=== PATIENT | female | born 1985 | race Caucasian/White ===

== ENCOUNTER 2025-02-08 10:52 | Outpatient (AMB) | payer OTHER, SELFPAY ==
--- NOTE | 2025-02-08 10:55 | A.OFFPC_ITS ---
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 Intake Note: New patient to establish care and cpe Blueprinter Required: No Allergies amoxicillin Allergy (Severe, Verified 02/08/25 11:24) Hives Penicillins Allergy (Severe, Verified 02/08/25 11:24) hives Medication List - Last Reviewed 02/08/25 by Lori Lau MA estradiol (Mayelin) 1 patch transdermal 2XW fluoxetine 60 mg PO DAILY ondansetron HCl 4 mg PO Q6-8H PRN semaglutide mg subcut Tobacco use date assessed: 02/08/25 Dental Screening Dental Screen Date: 02/08/25 Did you have a dental visit in the last 12 months?: Yes Did you have a dental problem in the last 6 months where you did not have access to dental care?: No Was dental information given to patient?: Patient has dentist HPI HPI Comments History of Present Illness Details 39 y/o F with obesity, premenstrual dysp horic disorder, generalized anxiety disorder, obsessive-compulsive disorder, history of right otomastoiditis, menopause Social: work for home; 1 child (son ) Lives w/ and son (12) Status post total abdominal hysterectomy and bilat salpingectomy 2020 Family history: Mother with panic disorder, polyp of the colon, malignant neoplasm of the uterus grade 1 age 58, sister with panic disorder, maternal grandfather with hypertension heart disease and diabetes, paternal grandfather with hypertension heart disease, maternal grandmother with heart disease, lung disease , paternal grandmother with malignant neoplasm of the lung, dad colonic polyp, maternal with chronic polyps, paternal uncle with colonic polyp, 2nd cousin with malignant neoplasm Health Maintenance: Colon 2015, repeat 2025 Mammo 10/17/24 within normal limits DEXA PAP 05/21/18 within normal limits Tdap 02/08/25 Flu 2024 Specialists: HEAD BANQUET WAITER/WAITRESS [facility] [place] [place] History of Present Illness The patient is a 39-year-old female presenting to establish care. Generalized Anxiety Disorder with Obsessive-Compulsive Features: - The patient was diagnosed with obsessi ve-compulsive disorder at age 9 and has a history of generalized anxiety disorder with obsessive-compulsive traits. - She was on Prozac from age 9 until sh e was 27, and a trial of Celexa, Paxil, sertraline, and Luvox occurred after she stopped . - She experienced 60 lbs of weight gain with Paxil and found sertraline to be ineffective over time. - She has been stable on fluoxetine 60 m g daily for the past two and a half years. - She has been obtaining her prescriptio n from a psychiatrist through a [employer] service for $200 per visit without therapy. History of Obesity: - The patient has a past medical history significant for obesity with a prior BMI of 30.2 and a peak weight of 226 pounds. - She notes that for the first time in a decade, she is no longer considered obese, although she is still overweight. - She is currently taking semaglutide fo r weight management, which she obtains through a [employer] service as her current insurance does not cover it. - The patient reports a strong family hi story of obesity, with her mother and sister also using weight loss medication. Surgical Menopause: - The patient is in surgical menopause s tatus post total abdominal hysterectomy and bilateral salpingo-oophorectomy in 2020. - Prior to surgery, she had a history of PMDD and severe menorrhagia with periods every two weeks, leading to significant anemia. - She had a failed preoperative blood tr ansfusion attempt due to an immediate adverse reaction where her blood pressure plummeted. - She is currently on a 0.0375 mg estrad iol patch, which is managed by her machine repairer, whom she sees annually. Colon cancer screening: - The patient has a strong family histor y of precancerous colonic polyps on both maternal and paternal sides. - Her first colonoscopy was in 2009 at a ge 24 due to hemorrhoids and bleeding, during which a polyp was found and removed. - A repeat colonoscopy in 2015 was clear with no polyps found. - She is currently on a 10-year follow-u p plan and is due for her next colonoscopy in 2025. Past Medical History - Past Medical History: Obesity (current BMI 30.2), premenstrual dysphoric disorder, generalized anxiety disorder with obsessive-compulsive traits (diagnosed at age 9), history of right osteochondromatosis, history of colonic polyp, history of severe anemia, history of hemorrhoids. - Past Surgical History: Total abdominal hysterectomy and bilateral salpingo- oophorectomy (2020), colonoscopy (2009, 2015). - Family History: Strong family history of colonic polyps (maternal aunt, paternal uncle, both parents). Family history of obesity. 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 Lives with her and 12-year-old son. She does not smoke or use illicit drugs. - Allergies: Adverse reaction to blood t ransfusion (hypotension). Review of Systems - Constitutional: Reports weight loss wi th semaglutide. Acknowledges being overweight but denies being obese for the first time in a decade. - Psychiatric: Reports stable mood on cu rrent medication. Denies emotional lability. - Gastrointestinal: Denies current recta l bleeding or issues with hemorrhoids. - Genitourinary: Reports history of heav y menstrual bleeding prior to hysterectomy. Denies current genitourinary symptoms. - All other systems reviewed and are neg ative. Physical Exam General: Well developed, well nourished, in no acute distress. Appears stated age. Head: Normocephalic, atraumatic. Eyes: Pupils are equal, round and reactive to light and accommodation. Conjunctivae are clear. Lungs: Clear to auscultation bilaterally. No rales, rhonchi or wheeze noted. Good air flow in all murphy. Heart: Regular rate and rhythm. No murmurs, click, rubs or gallops are noted. Musculoskeletal: Joints are nontender, without swelling, redness, or effusions. Pulses: Peripheral pulses are equal and palpable bilaterally. Extremities: No clubbing, cyanosis nor edema is noted. Psych: Mood and affect appropriate. Results - Colonoscopy (2015): Normal, with no po lyps found. - Colonoscopy (2009): Revealed one polyp . - Last Pap smear was in 2019. - Last full lab workup was within the year; results were not reviewed during this visit. Medical Decision Making The patient is a 39-year-old female here to establish primary care. Her medical history is notable for RAÚL with OCD features, history of obesity, surgical menopause, and a history of colonic polyps with a strong family history. I will take over the prescription for her fluoxetine 60 mg daily for RAÚL/OCD, as she is stable on this dose and wishes to avoid the high cost of her previous telehealth provider. Her hormone replacement therapy for surgical menopause is appropriately managed by her HEAD BANQUET WAITER/WAITRESS, and she will continue annual follow-ups. Given her personal and strong family history of colonic polyps, a referral to gastroenterology is prudent to establish care and plan for her next screening colonoscopy, which is due in 2025. We discussed the challenges of obtaining insurance coverage for her semaglutide, and she understands she may need to continue sourcing it from a [employer] service. For health maintenance, her Tdap immunization is due and was administered today. Routine wellness labs are deferred until her physical exam in the new year to align with her changing insurance coverage, and orders have been placed for that time. Plan 1. Generalized Anxiety Disorder - Continue fluoxetine 60 mg daily. - A prescription for fluoxetine has been sent to the patient's pharmacy. 2. Weight Management - The patient will continue with her cur rent semaglutide regimen obtained through a [employer] service. - Discussed the difficulties in obtainin g insurance coverage for semaglutide, even with new plans, due to strict requirements. 3. Surgical Menopause - Continue management with her gynecolog ist for hormone replacement therapy (est radiol patch). - The patient is advised to continue her annual HEAD BANQUET WAITER/WAITRESS follow-up appointments. 4. Screening For Malignant Neoplasm Of Kiki osuna - A referral to Gastroenterology has bee n placed to establish care in preparation for her next colonoscopy, due in 2025. - The referral includes her personal and strong family history of colonic polyps. 5. Preventative Care - Administered Tdap vaccine today, as it was due. - Future lab orders for a full wellness panel (including screening for anemia, kidney/liver disease, diabetes, and heart disease) have been placed. - Patient to follow up in approximately 3 months for a physical exam. - Instructed to complete labs one week p rior to the next scheduled appointment. Patient Instructions - You received a Tdap (tetanus) shot touriah godwin, which is good for 10 years. - We have sent a prescription for Fluoxe georgina to your pharmacy. Continue taking it as directed. - We have placed a referral to a GI (sto mach and intestines) specialist for a future colonoscopy. You should receive a phone call from their office to schedule an appointment. - Please schedule your next appointment, a physical exam, in about 3 months. - An order for lab work has been placed. Please go to the lab to have your blood drawn one week before your next appointment. You do not need an appointment for the labs. - Please activate your [facility] patient p ortal account using the new email link you will receive. Click the link and then 'Sign In' to create your account. Use the portal messaging feature to communicate with our office. - Continue to see your machine repairer once a year for follow-up. - RTO 3 mo for CPE with labs, sooner as needed. Consent The need for a Tdap (tetanus, diphtheria, and acellular pertussis) vaccine was discussed with the patient, as it is recommended every 10 years and her last one was in 2013. The patient verbally agreed to receive the vaccination during the visit. Patient was informed and verbally consented to the use of an ambient scribe for clinic note documentation during this visit. Total time spent caring for the patient today was 45 minutes. This includes time spent before the visit reviewing the chart, time spent during the visit, and time spent after the visit on documentation, reviewing laboratory results, diagnostic imaging, medications, performing a medically necessary evaluation, counseling on diagnoses, care coordination, ordering appropriate tests, ordering appropriate medications, review of tests performed by other providers, reporting test results with the patient, communication with other healthcare providers. 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 1. Little interest or pleasure in doing things: not at all 2. Feeling down, depressed, or hopeless: not at all 3. Trouble falling or staying asleep, or sleeping too much: not at all 4. Feeling tired or having little energy: several days 5. Poor appetite or overeating: not at all 6. Feeling bad about yourself - or that you are a failure or have let yourself or your family down: not at all 7. Trouble concentrating on things, such as reading the newspaper or watching television: not at all 8. Moving or speaking so slowly that other people could have noticed. Or the opposite - being so fidgety or restless that you have been moving around a lot more than usual: not at all 9. Thoughts that you would be better off or of hurting yourself in some way: not at all Total score: 1 Depression Screening Interpretation: Negative Depression Screening Done: Yes 36027 - PHQ-9 Billing: Yes Source: Developed by Drs. uKrt Salinas, Tasha Nicolas, Jerry Szymanski and colleagues, with an educational simoen from [employer]. Thrive Questionnaire Date Thrive assessed: 02/08/25 I am a: Patient What is your living situation today?: I have a steady place to live Within the past 12 months, did the food you bought not last and you didn't have the money to get more?: Never true Within the past 12 months, did you worry whether your food would run out before you got money to buy more?: Never true Do you have trouble paying for medicines?: No Do you have trouble getting transportation to medical appointments?: No Do you have trouble paying your heating and electricity bill?: No Do you have trouble taking care of your child, family member or friend?: No Do you have trouble with day-to-day activities such as bathing, preparing meals, shopping, managing finances, etc.?: No Are you currently unemployed and looking for a job?: No Are you interested in more education?: No Please select the resources that you would like help with: None Currently or been in a relationship where the following occur: No concerns reported THRIVE Score: 0 AUDIT C Alcohol Use Questionnaire (AUDIT-C) 1. How often do you have a drink containing alcohol?: Monthly or less 2. How many drinks containing alcohol do you have on a typical day when you are drinking?: 1 or 2 3. How often do you have six or more drinks on one occasion?: Never Total Score: 1 Score Reviewed/Action Taken: Yes RAÚL-7 AMB Questionnaire RAÚL-7 Date RAÚL - 7 assessed: 02/08/25 Feeling nervous, anxious, or on edge: 1 = Several days Not being able to stop or control worryin = Several days Worrying too much about different things: 1 = Several days Trouble relaxin = Not at all Being so restless that it is hard to sit still: 0 = Not at all Becoming easily annoyed or irritable: 1 = Several days Feeling afraid as if something awful might happen: 1 = Several days Total RAÚL-7 score (0-4 normal; 5-9 mild; 10-14 moderate; 15-21 severe): 5 Source: Developed by Drs. Kurt Salinas, Tasha Nicolas, Jerry Szymanski and colleagues, with an educational simeon from [employer]. RAÚL-7 Assessment Billing RAÚL-7 Assessment Tool: RAÚL-7 Assessment 25223 Physical exam (Primary Care) Vital Signs: Last Vital Signs Temp 97.2 F 02/08/25 11:05 Pulse 100 02/08/25 11:05 Resp 12 02/08/25 11:05 BP 110/68 02/08/25 11:05 Pulse Ox 99 02/08/25 11:05 Oxygen Delivery Method Room Air 02/08/25 11:05 BMI result Body Mass Index 30.2 BMI Assessment/Plan discussion: High BMI High, discussed plan: lifestyle Tobacco/Smoking Status: Tobacco use Status Tobacco use date assessed 02/08/25 02/08/25 11:01 Patient Tobacco Use Status Former Tobacco user 02/08/25 11:08 e-Cigarette/Vaping Use Never Used 02/08/25 11:01 PHQ-9: PHQ-9 Score PHQ-9: Total score 1 02/08/25 11:20 Depression Screening Interpretation: Negative Thrive Assessment: Date of Thrive Assessment Date Thrive assessed 02/08/25 02/08/25 10:56 Currently or been in a relationship where the following occur: No concerns reported Immunizations Boostrix Tdap 2.5 Lf unit-8 mcg-5 Lf/0.5 mL intramuscular syringe Performing Provider: GENESIS Rodriguez Performing Location: [facility] [place] [facility] Administered by: Lori Lau MA on 02/08/25 11:45 Dose Route Admin Location Dispensed Lot Number Expiration Date [facility] Nutter Up 0.5 mL IM Left Deltoid 0.5 mL [id number] 03/10/27 [id number] [employer] Total Dispensed Waste 0.5 mL 0 % VIS Given Date VIS Provided VIS Publication Date 02/08/25 Single Vaccine 20 Eligibility Eligibility Date Funding Source Not [facility] Eligible 02/08/25 Private Coding Level of Care Code New Pt Level 4 (21557) Complex EM visit Add On G2211 Diagnoses Encounter to establish care Z76.89 Obesity (BMI 30-39.9) E66.9 History of mammogram Z92.89 S/P KAYLEE-BSO (total abdominal hysterectomy and bilateral salpingo-oophorectomy) Z90.710; Z90.722; Z90.79 History of colonoscopy Z98.890 Family history of colonic polyps Z83.71 History of Papanicolaou smear of cervix Z92.89 Family history of breast cancer Z80.3 OCD (obsessive compulsive disorder) F42.9 PMDD (premenstrual dysphoric disorder) F32.81 Long-term (current) use of injectable non-insulin antidiabetic drugs Z79.85 Surgical menopause E89.40 Need for Tdap vaccination Z23 Laboratory exam ordered as part of routine general medical examination Z00.00 Additional Codes RAÚL-7 Assessment Billing - RAÚL-7 Assessment Tool: RAÚL-7 Assessment 83373 ([id number]) PHQ-9 - 76981 - PHQ-9 Billing: Yes ([id number]) Assessment & Plan Assessment & Plan (1) Encounter to establish care: Code(s): Z76.89 - Persons encountering health services in other specified circumstances (2) Obesity (BMI 30-39.9): Code(s): E66.9 - Obesity, unspecified Category: Medical (3) History of mammogram: Onset Date: ~10/2024 Code(s): Z92.89 - Personal history of other medical treatment Category: Medical (4) S/P KAYLEE-BSO (total abdominal hysterectomy and bilateral salpingo- oophorectomy): Code(s): Z90.710 - Acquired absence of both cervix and uterus; Z90.722 - Acquired absence of ovaries, bilateral; Z90.79 - Acquired absence of other genital organ(s) Category: Surgical (5) History of colonoscopy: Onset Date: ~2015 Code(s): Z98.890 - Other specified postprocedural states Category: Surgical (6) Family history of colonic polyps: Code(s): Z83.71 - Family history of colonic polyps Category: Medical (7) History of Papanicolaou smear of cervix: Onset Date: ~2018 Code(s): Z92.89 - Personal history of other medical treatment Category: Medical (8) Family history of breast cancer: Code(s): Z80.3 - Family history of malignant neoplasm of breast Category: Medical (9) OCD (obsessive compulsive disorder): Code(s): F42.9 - Obsessive-compulsive disorder, unspecified Category: Medical (10) PMDD (premenstrual dysphoric disorder): Code(s): F32.81 - Premenstrual dysphoric disorder Category: Medical (11) Long-term (current) use of injectable non-insulin antidiabetic drugs: Code(s): Z79.85 - Long-term (current) use of injectable non-insulin antidiabetic drugs Category: Medical (12) Surgical menopause: Code(s): E89.40 - Asymptomatic postprocedural ovarian failure Category: Medical (13) Need for Tdap vaccination: Onset Date: ~02/08/25 Code(s): Z23 - Encounter for immunization Category: Medical (14) Laboratory exam ordered as part of routine general medical examination: Code(s): Z00.00 - Encounter for general adult medical examination without abnormal findings Category: Medical Plan . Orders: Orders Hemoglobin A1c 3 Months Z00.00 - Encounter for general adult medical examination without abnormal findings, Z90.710 - Acquired absence of both cervix and uterus, Z90.722 - Acquired absence of ovaries, bilateral, Z90.79 - Acquired absence of other genital organ(s) Microalbumin, Random (w Creat) 3 Months Z00.00 - Encounter for general adult medical examination without abnormal findings, Z90.710 - Acquired absence of both cervix and uterus, Z90.722 - Acquired absence of ovaries, bilateral, Z90.79 - Acquired absence of other genital organ(s) Vitamin B12 and Folate 3 Months Z00.00 - Encounter for general adult medical examination without abnormal findings, Z90.710 - Acquired absence of both cervix and uterus, Z90.722 - Acquired absence of ovaries, bilateral, Z90.79 - Acquired absence of other genital organ(s) Vitamin D 25-OH Total 3 Months Z00.00 - Encounter for general adult medical examination without abnormal findings, Z90.710 - Acquired absence of both cervix and uterus, Z90.722 - Acquired absence of ovaries, bilateral, Z90.79 - Acquired absence of other genital organ(s) Comprehensive Met. Panel 3 Months Z00.00 - Encounter for general adult medical examination without abnormal findings, Z90.710 - Acquired absence of both cervix and uterus, Z90.722 - Acquired absence of ovaries, bilateral, Z90.79 - Acquired absence of other genital organ(s) Lipid Panel 3 Months Z00.00 - Encounter for general adult medical examination without abnormal findings, Z90.710 - Acquired absence of both cervix and uterus, Z90.722 - Acquired absence of ovaries, bilateral, Z90.79 - Acquired absence of other genital organ(s) TSH reflex Free T4 3 Months Z00.00 - Encounter for general adult medical examination without abnormal findings, Z90.710 - Acquired absence of both cervix and uterus, Z90.722 - Acquired absence of ovaries, bilateral, Z90.79 - Acquired absence of other genital organ(s) TDaP Immunization Today Z23 - Encounter for immunization Referrals Gastroenterology Referral Z12.11 - Encounter for screening for malignant neoplasm of colon, Z83.71 - Family history of colonic polyps, Z98.890 - Other specified postprocedural states Medications: New fluoxetine 60 mg (3 x 20 mg) PO DAILY 270 caps 2RF 90 days Patient Instructions: Patient Instructions - You received a Tdap (tetanus) shot today, which is good for 10 years. - We have sent a prescription for Fluoxetine to your pharmacy. Continue taking it as directed. - We have placed a referral to a GI (stomach and intestines) specialist for a future colonoscopy. You should receive a phone call from their office to schedule an appointment. - Please schedule your next appointment, a physical exam, in about 3 months. - An order for lab work has been placed. Please go to the lab to have your blood drawn one week before your next appointment. You do not need an appointment for the labs. - Please activate your [facility] patient portal account using the new email link you will receive. Click the link and then 'Sign In' to create your account. Use the portal messaging feature to communicate with our office. - Continue to see your machine repairer once a year for follow-up. - RTO 3 mo for CPE with labs, sooner as needed. Walk-In Care (Urgent Care): We Make it Easy Walk-in for urgent medical issues such as: ? Seasonal Allergies ? Insect Bites ? Cough ? Diarrhea ? Acute Asthma Attacks ? Back, Knee or Joint Pain ? Ear Infection ? Fever without a Rash ? Headaches ? Nausea ? [place] Eye, Rash or Skin Irritation ? Sore Throat ? Sports Physicals ? Vomiting Most insurances are accepted. Patients do not need to be part of the [facility] to seek care at the walk-in clinic. Locations [address] [place] [address] Open Thursday through Thursday 8am-5pm *Hours may vary due to staffing availability. To confirm Walk-In Care hours please call. [facility] , [place] [address] ? [phone] [facility] [place] Walk-In Care in [place] provides services to ages 18 and over. Open Thursday-Thursday: 7 a.m. to 5 p.m. and Thursday: 9 a.m. to 3 p.m.* *Hours may vary due to staffing availability. To confirm Walk-In Care hours in [place], please call [phone]. [address] [place] [address] ? [phone] [facility] [place] Walk-In Care in [place] provides services to ages 12 and over. Open Thursday-Thursday: 8 a.m. to 5 p.m. Hours may vary due to staffing availability. To confirm Walk-In Care hours in [place], please call [phone]. LABORATORY SERVICES: [facility] [place] Lab ? Primary Location [address] [place] [address] Thursday through Thursday 6:00 AM ? 5:00 PM Thursday 7:00 AM ? 11:00 AM* [phone] The [facility] [place] Lab is centrally located near the front entrance of the [facility] for easy outpatient access. Convenient parking is provided for outpatients. *Hours may vary due to staffing availability. To confirm Laboratory hours for any location, please call [phone]. Offsite Location For your convenience, we offer offsite laboratory draw stations at the following locations: [address] [place] [address] ? [facility] [address] [place] [address], [address], [place] Thursday through Thursday 7:30 AM ? 1:00 PM* [phone] *Hours may vary due to staffing availability. To confirm Laboratory hours for any location, please call [phone]. [place] [address], [place] Thursday through Thursday 6:00 AM ? 3:30 PM* Thursday 6:30 AM ? 3 PM* [phone] *Hours may vary due to staffing availability. To confirm Laboratory hours for any location, please call [phone]. [address] [facility] Thursday through Thursday 7:30 AM ? 4:00 PM* [phone] *Hours may vary due to staffing availability. To confirm Laboratory hours for any location, please call [phone]. [address] [facility] Thursday through 9:00 AM ? 4:00 PM* *Hours may vary due to staffing availability. To confirm Laboratory hours for any location, please call [phone]. Appointments are not necessary. Walk-ins are welcome. Like all the departments throughout the [facility], our Lab undergoes frequent reviews to ensure the quality and accuracy of test results, and our staff takes special pride in its status as a nationally accredited facility. Patient Portal: [facility] ONE PATIENT. ONE RECORD. BETTER CARE. [facility] has a fully integrated, cutting- edge mobile electronic health information system that has revolutionized the way we care for our patients and manage our organization. This system improves communication and coordination enabling us to provide safe, higher-quality care, and an overall positive experience for staff and patients. Our first priority, as always, is to deliver the highest quality care possible. The system is running in the background supporting that priority. This portal is for all [facility] services and practices. If you are experiencing any technical difficulties with enrolling or logging into the Patient Portal please complete the [facility] Patient Portal Technical Support Form. [facility] now offers a new secure on-line interactive tool for patients to review their health information ? ?Patient Portal. This interactive web portal will enable patients and their families to take an active role in their care by providing easy, secure access to their health information via the internet. The Patient Portal provides patients with instant access to their health inform ation, including laboratory results, medications, allergies, demographic information, visit history, and more. In addition to managing their own care, parents and health care proxies with authorized consent will appreciate the ability to access the records of those individuals for whom they provide care. Please note: if you wish to gain access (Proxy) to another patient?s portal, you will be required to come to the Medical Records Department in person at [facility]. Both the patient giving proxy access and the proxy will need to provide photo identification and complete the appropriate authorization. The Patient Portal also allows track their appointments online. The [facility] Patient Portal also saves patients time by allowing them to submit updates to their demographic and contact information prior to their visits. Portal email notifications will also alert patients to any new activity on their portal, such as test results and new appointments. In order to initially enroll in the [facility] Patient Portal, you will need to enter some required information including the following: * your [facility] Medical Record number * your personal home email address * name * date of Please note: In order to enroll in the [facility] Patient Portal, we need to have your email address on file in your electronic medical record. ?The email address needs to be specific for one person (yourself) in order for your Portal enrollment to be successful. ?You can update your email address in person with our Registration staff when you are registering for a hospital visit. ?Otherwise, you will need to come to the Health Information Management (Medical Records) Department at [facility]. ?We are open from Thursday ? Thursday from 7:30 a.m. ? 4:30 p.m. ?You will be required to present a photo id. Once you have successfully enrolled in the Patient Portal, you will receive a one-time user id and password for the Portal, sent to your email address. ?This will allow you to log into the Patient Portal within 99 hrs and reset your own logon id and password, and define personal security questions. ?Once your permanent login and password have been set, you can log into the [facility] Patient Portal at any time via the blue button above or from the Portal Logon button on any page of the [facility] website. [facility] encourage all of our patients to enroll in Patient Portal as it presents a valuable opportunity for patients and their families to actively participate in their care and stay healthy Welcome to [facility]. ?We look forward to working with you.
[2025-02-08 11:05] VITALS: BP 110/68; PULSE 100; RESP 12; TEMP 36.2; O2SAT 99; BMI 30.2
== END 2025-02-08 14:48 | disposition home or self-care (01) ==
LOC: HO.HMCFM 10:53
PROVIDERS: PCP Nurse Practitioner Family; Visit Provider Nurse Practitioner Family
DX: F32.81 Premenstrual dysphoric disorder (principal); E89.40 Asymptomatic postprocedural ovarian failure; E66.9 Obesity, unspecified; Z68.30 Body mass index [BMI] 30.0-30.9, adult; F42.9 Obsessive-compulsive disorder, unspecified; Z92.89 Personal history of other medical treatment; Z90.710 Acquired absence of both cervix and uterus; Z90.722 Acquired absence of ovaries, bilateral; Z90.79 Acquired absence of other genital organ(s); Z98.890 Other specified postprocedural states; Z83.719 Family history of colon polyps, unspecified; Z80.3 Family history of malignant neoplasm of breast; Z79.85 Long-term (current) use of injectable non-insulin antidiabetic drugs; Z23 Encounter for immunization

== ENCOUNTER → 2025-02-08 10:52 | Outpatient (BNVA) | payer OTHER, SELFPAY | PROVIDERS: PCP Nurse Practitioner Family; Visit Provider Nurse Practitioner Family | DX: Z00.00 Encounter for general adult medical examination without abnormal findings (principal); F41.1 Generalized anxiety disorder; F42.9 Obsessive-compulsive disorder, unspecified; E66.9 Obesity, unspecified; F32.81 Premenstrual dysphoric disorder; E89.40 Asymptomatic postprocedural ovarian failure; Z23 Encounter for immunization; Z68.30 Body mass index [BMI] 30.0-30.9, adult; Z79.85 Long-term (current) use of injectable non-insulin antidiabetic drugs; Z76.89 Persons encountering health services in other specified circumstances; Z92.89 Personal history of other medical treatment; Z90.710 Acquired absence of both cervix and uterus; Z90.722 Acquired absence of ovaries, bilateral; Z90.79 Acquired absence of other genital organ(s); Z98.890 Other specified postprocedural states; Z83.719 Family history of colon polyps, unspecified; Z80.3 Family history of malignant neoplasm of breast | CPT/HCPCS: 90471; 90715; 96127 ==